=== PATIENT | female | born 2000 | race African-American/Black ===

== ENCOUNTER 2023-10-25 10:45 | Emergency (ER) | payer OTHER ==
[~2023-10-25] VITALS: Ht 157.5 cm; Wt 111.0 kg
[2023-10-25 10:56] VITALS: BP 126/85; PULSE 84; RESP 16; O2SAT 98
[2023-10-25] MEDS ORDERED: OLOP2.5D12 EACHEYE (11:09)
== END 2023-10-25 11:27 | disposition home or self-care (01) ==
LOC: ER 10:45
DX: H10.13 Acute atopic conjunctivitis, bilateral (principal); J45.909 Unspecified asthma, uncomplicated; Z88.8 Allergy status to other drugs, medicaments and biological substances
CPT/HCPCS: 99282